=== PATIENT | male | born 1955 | race Caucasian/White ===

== ENCOUNTER 2017-12-27 12:01 | Day surgery (SDC) | payer BC ==
[2017-12-25 12:04] VITALS: BMI 28.5
[~2017-12-27 12:01] MED LIST: LACTATED RINGERS 1,000 ML IV SCH; LIDOCAINE 1% 20 ML VIAL (10MG/ML) FOR IV START INTRADERMA PRN; MIDAZOLAM 2 MG/2 ML VIAL IV PRN
[2017-12-27 13:26] VITALS: TEMP 97.2
[2017-12-27] MEDS ORDERED: PROPOFOL 10 MG/ML 20 ML VIAL IV ONE (14:13)
--- NOTE | 2017-12-27 14:34 | P.PCN ---
Date of Procedure: 12/27/17 Procedure(s) Performed: BRIEF HISTORY: Patient is a 62-year-old pleasant white male, scheduled for an elective colonoscopy as a part of screening for colon neoplasia. His 35-year- old daughter was recently diagnosed with colorectal neoplasia. PROCEDURE PERFORMED: Colonoscopy with snare polypectomy. PREOPERATIVE DIAGNOSIS: Screening for colon cancer/family history of colon cancer. IV sedation per Anesthesia. PROCEDURE: After informed consent was obtained, the patient, was brought into the endoscopy unit. IV sedation was administered by Anesthesia under continuous monitoring. Digital rectal examination was normal. Initially the Olympus CF- 160 flexible video colonoscope was then inserted in the rectum, gradually advanced into the cecum without any difficulty. Careful examination was performed as the scope was gradually being withdrawn. Ileocecal valve and the appendiceal orifice were visualized and appeared normal. Prep was excellent. Mucosa of the cecum, ascending colon, transverse colon appeared normal. In the distal transverse colon there was a 5 mm sessile polyp that was removed by snare polypectomy. Rest of the, descending colon, sigmoid colon, and rectum appeared normal. Scattered sigmoid diverticulosis seen. Retroflexion was performed in the rectum and no lesions were seen. The patient tolerated the procedure well. IMPRESSION: 5 mm sessile transverse colon polyp status post polypectomy Scattered sigmoid diverticulosis RECOMMENDATIONS: Findings of this examination were discussed with the patient as well as his family. He was advised to follow with the biopsy results and have a repeat surveillance colonoscopy in 5 years from now because of family history of colon cancer.
[2017-12-27 14:59] VITALS: BP 134/85; PULSE 66; RESP 18
== END 2017-12-27 15:21 | disposition home or self-care (01) ==
LOC: ORWHC2ENDO 12:01
PROVIDERS: ATTEND Internal Medicine Gastroenterology
DX: Z12.11 Encounter for screening for malignant neoplasm of colon (principal); D12.3 Benign neoplasm of transverse colon; K57.30 Diverticulosis of large intestine without perforation or abscess without bleeding; I10 Essential (primary) hypertension; Z88.0 Allergy status to penicillin; Z79.899 Other long term (current) drug therapy; Z80.0 Family history of malignant neoplasm of digestive organs
CPT/HCPCS: 88305; 45385; J2704